=== PATIENT | male | born 1950 | race Caucasian/White ===

== ENCOUNTER 2022-12-24 16:28 | Emergency (ER) | payer MEDICARE, MEDICAID ==
[~2022-12-24] VITALS: Ht 188 cm; Wt 145.0 kg
[2022-12-24 17:16] LABS: Basophils # (auto) 0.1 10 ^3/uL (0-0.2); Basophils % (auto) 0.6 % (0.0-2.0); Eosinophils # (auto) 0.3 10 ^3/uL (0-0.8); Eosinophils % (auto) 2.4 % (0.0-7.0); Hematocrit 41.2 % (41.0-53.0); Hemoglobin 13.6 g/dL (13.5-17.5); Lymphocytes # (auto) 1.7 10 ^3/uL (0.4-5.4); Lymphocytes % (auto) 12.2 % (10.0-50.0); Mean Corpuscular Hemoglobin 29.4 pg (28.0-32.0); Mean Corpuscular Volume 89.3 fL (80.0-100.0); Monocytes # (auto) 1.1 10 ^3/uL (0-1.3); Monocytes % (auto) 7.6 % (0.0-12.0); Neutrophils # (auto) 10.7 10 ^3/uL (1.6-8.6); Neutrophils % (auto) 77.2 % (37.0-80.0); Nucleated Red Blood Cells % 0.1 %; Red Blood Cells 4.62 10^6/uL (4.5-5.90); Red Cell Distribution Width 14.6 % (11.8-14.3); White Blood Cell 13.8 10^3/uL (4.4-10.8)
[2022-12-24 17:24] LABS: Urine Bacteria NONE SEEN /hpf (None Seen); Urine Blood TRACE /uL (Negative); Urine Mucus FEW (None Seen); Urine Specific Gravity 1.019 (1.001-1.035); Urine WBC 2 /hpf (0 - 3)
[2022-12-24 17:28] LABS: Albumin 3.3 g/dL (3.4-5.0); Calcium 8.2 mg/dL (8.5-10.1); Magnesium 2.6 mg/dL (1.6-2.6); Potassium 4.3 mmol/L (3.5-5.1)
[2022-12-24 17:31] LABS: Bilirubin, Total 0.5 mg/dL (0.2-1.0); Total Protein 6.6 g/dL (6.4-8.2)
[2022-12-24] MEDS ORDERED: FLEET ENEMA(ADULT) 135 ML PR ONE (19:15)
[2022-12-24 21:25] VITALS: BP 138/72
[2022-12-24] MEDS: GOLYTELY 4L KIT PO ONE ×2 (22:08→23:01)
== END 2022-12-24 23:18 | disposition home or self-care (01) ==
LOC: EDBD 16:28 → ER 16:31
DX: K40.90 Unilateral inguinal hernia, without obstruction or gangrene, not specified as recurrent (principal); K59.00 Constipation, unspecified; J44.9 Chronic obstructive pulmonary disease, unspecified; E78.5 Hyperlipidemia, unspecified; I10 Essential (primary) hypertension; F17.210 Nicotine dependence, cigarettes, uncomplicated; Z79.899 Other long term (current) drug therapy
CPT/HCPCS: 36415; 71045; 74176; 80053; 81001; 83605; 83690; 83735; 84484; 85025; 93005

== ENCOUNTER 2022-12-26 03:50 | Inpatient (IN) | payer MEDICARE, MEDICAID ==
[~2022-12-26] VITALS: Ht 188 cm; Wt 140.5 kg
[2022-12-26 05:05] LABS: INR 0.92 (0.9-1.15); Partial Thromboplastin Time 21.3 sec (24.6-33.4)
[2022-12-26 05:06] LABS: Albumin 3.2 g/dL (3.4-5.0); BUN/Creatinine Ratio 12.3; Calcium 8.4 mg/dL (8.5-10.1); Magnesium 2.3 mg/dL (1.6-2.6); Potassium 4.3 mmol/L (3.5-5.1)
[2022-12-26 05:09] LABS: Bilirubin, Total 0.5 mg/dL (0.2-1.0)
[2022-12-26 05:17] LABS: Basophils # (auto) 0.2 10 ^3/uL (0-0.2); Basophils % (auto) 1.3 % (0.0-2.0); Eosinophils # (auto) 0.3 10 ^3/uL (0-0.8); Hematocrit 42.1 % (41.0-53.0); Hemoglobin 13.8 g/dL (13.5-17.5); Lymphocytes % (auto) 7.3 % (10.0-50.0); Mean Corpuscular Hemoglobin 29.3 pg (28.0-32.0); Mean Corpuscular Hgb Conc. 32.8 g/dL (32.0-36.0); Mean Corpuscular Volume 89.4 fL (80.0-100.0); Monocytes # (auto) 1.2 10 ^3/uL (0-1.3); Monocytes % (auto) 8.9 % (0.0-12.0); Neutrophils # (auto) 11.2 10 ^3/uL (1.6-8.6); Neutrophils % (auto) 80.5 % (37.0-80.0); Nucleated Red Blood Cells % 0.1 %; Red Blood Cells 4.71 10^6/uL (4.5-5.90); Red Cell Distribution Width 14.4 % (11.8-14.3); White Blood Cell 13.9 10^3/uL (4.4-10.8)
[2022-12-26 07:24] LABS: Urine Blood Normal /uL (Negative); Urine Specific Gravity 1.013 (1.001-1.035)
[2022-12-26] MEDS ORDERED: AMLO-496 PO (09:56)
[2022-12-26] MEDS ORDERED: CLON0.1T PO (09:56)
[2022-12-26] MEDS ORDERED: NITROGLYCERIN 0.4 MG SL TAB SL PRN (10:00)
[2022-12-26] MEDS ORDERED: MORPHINE SULFATE INJ 2 MG/ml SYRG IV PRN (10:00)
[2022-12-26] MEDS ORDERED: ACETAMINOPHEN 325 MG TAB PO PRN (10:00)
[2022-12-26] MEDS ORDERED: IPRATROPIUM BROM 0.5 MG/2.5ML INH SOL NEB PRN (10:30)
[2022-12-26] MEDS ORDERED: ALBUTEROL SULF 2.5 MG/0.5ML(0.5%) NEB SOLN NEB PRN (10:30)
[2022-12-26] MEDS ORDERED: PANTOPRAZOLE 40 MG/10 ML VIAL INJ IV ONE ×2 (10:30→10:45)
[2022-12-26] MEDS ORDERED: ENOXAPARIN SOD 40 MG/0.4 ML SYRINGE SC ONE (10:45)
[2022-12-26] MEDS ORDERED: metroNIDAZOLE 500MG/100ML 100 ML IV ONE (10:45)
[2022-12-26] MEDS ORDERED: cefTRIAXone 1GM/50ML D5W 50 ML IV ONE (10:45)
[2022-12-26 10:56] LABS: Cholesterol 178 mg/dL (< 200)
[2022-12-26] MEDS: cloNIDine HCL 0.1 MG TAB PO SCH ×2 (10:57→22:42)
[2022-12-26 11:05] LABS: HDL Cholesterol 41 mg/dL (40-59); LDL Cholesterol 122 mg/dL (< 100); Triglycerides 182 mg/dL (< 150)
[2022-12-26] MEDS: ALBUTEROL SULF 2.5 MG/0.5ML(0.5%) NEB SOLN NEB SCH ×2 (12:00→19:49)
[2022-12-26] MEDS: IPRATROPIUM BROM 0.5 MG/2.5ML INH SOL NEB SCH ×2 (12:00→19:49)
[2022-12-26] MEDS: LACTATED RINGER'S 1,000 ML IV SCH ×2 (12:49→18:45)
[2022-12-26 14:29] VITALS: BP 134/73
[2022-12-26] MEDS: MORPHINE SULFATE INJ 2 MG/ml SYRG IV PRN ×2 (14:51→20:03)
[2022-12-26] MEDS ORDERED: ALBUTEROL MEDNEB 2.5 mg/3ml NEB ONE (17:29)
[2022-12-26] MEDS: metroNIDAZOLE 500MG/100ML 100 ML IV SCH (18:55)
[2022-12-26] MEDS: ONDANSETRON HCL 4 MG/2 ML VIAL IV PRN (20:02)
[2022-12-26] MEDS: HYDROcodone-ACET 5/325MG TAB PO PRN (22:42)
[2022-12-27] MEDS: metroNIDAZOLE 500MG/100ML 100 ML IV SCH ×3 (03:06→17:24)
[2022-12-27] MEDS: LACTATED RINGER'S 1,000 ML IV SCH ×4 (05:51→21:24)
[2022-12-27] MEDS: ALBUTEROL SULF 2.5 MG/0.5ML(0.5%) NEB SOLN NEB SCH ×3 (06:00→19:22)
[2022-12-27] MEDS: IPRATROPIUM BROM 0.5 MG/2.5ML INH SOL NEB SCH ×3 (06:00→19:22)
[2022-12-27] MEDS: ONDANSETRON HCL 4 MG/2 ML VIAL IV PRN (08:12)
[2022-12-27 08:20] LABS: Urine Bacteria NONE SEEN /hpf (None Seen); Urine Blood Negative /uL (Negative); Urine Mucus FEW (None Seen); Urine Specific Gravity 1.028 (1.001-1.035); Urine WBC 5 /hpf (0 - 3)
[2022-12-27] MEDS: MORPHINE SULFATE INJ 2 MG/ml SYRG IV PRN ×3 (08:25→23:30)
[2022-12-27 09:00] VITALS: BP 148/80
[2022-12-27] MEDS ORDERED: PANTOPRAZOLE 40 MG/10 ML VIAL INJ IV SCH (10:00)
[2022-12-27 10:17] LABS: Basophils # (auto) 0.1 10 ^3/uL (0-0.2); Basophils % (auto) 0.7 % (0.0-2.0); Eosinophils # (auto) 0.3 10 ^3/uL (0-0.8); Eosinophils % (auto) 3.8 % (0.0-7.0); Hematocrit 41.2 % (41.0-53.0); Hemoglobin 13.3 g/dL (13.5-17.5); Lymphocytes # (auto) 1.4 10 ^3/uL (0.4-5.4); Lymphocytes % (auto) 18.1 % (10.0-50.0); Mean Corpuscular Hemoglobin 29.2 pg (28.0-32.0); Mean Corpuscular Hgb Conc. 32.3 g/dL (32.0-36.0); Mean Corpuscular Volume 90.5 fL (80.0-100.0); Monocytes # (auto) 0.7 10 ^3/uL (0-1.3); Monocytes % (auto) 9.4 % (0.0-12.0); Neutrophils # (auto) 5.2 10 ^3/uL (1.6-8.6); Red Blood Cells 4.56 10^6/uL (4.5-5.90); Red Cell Distribution Width 14.7 % (11.8-14.3); White Blood Cell 7.7 10^3/uL (4.4-10.8)
[2022-12-27] MEDS: PANTOPRAZOLE 40 MG/10 ML VIAL INJ IV SCH (10:17)
[2022-12-27] MEDS: cefTRIAXone 1GM/50ML D5W 50 ML IV SCH (10:17)
[2022-12-27] MEDS: amLODIPine BESYLATE 5 MG TAB PO SCH (10:18)
[2022-12-27] MEDS: cloNIDine HCL 0.1 MG TAB PO SCH ×2 (10:18→21:20)
[2022-12-27] MEDS: ENOXAPARIN SOD 40 MG/0.4 ML SYRINGE SC SCH (10:19)
[2022-12-27 10:27] LABS: Calcium 8.3 mg/dL (8.5-10.1); Potassium 4.1 mmol/L (3.5-5.1)
[2022-12-27 10:31] LABS: BUN/Creatinine Ratio 15.1; Bilirubin, Total 0.5 mg/dL (0.2-1.0); Total Protein 6.6 g/dL (6.4-8.2)
[2022-12-27 13:00] VITALS: BP 147/75
[2022-12-27 13:15] LABS: Urine Bacteria NONE SEEN /hpf (None Seen); Urine Blood Negative /uL (Negative); Urine Mucus FEW (None Seen); Urine Specific Gravity 1.028 (1.001-1.035); Urine WBC 1 /hpf (0 - 3)
[2022-12-27] MEDS: HYDROcodone-ACET 5/325MG TAB PO PRN ×2 (14:13→21:21)
[2022-12-27 17:00] VITALS: BP 164/80
[2022-12-27] MEDS: hydrALAZINE HCL 20 MG/ML VL IV PRN (17:25)
[2022-12-27] MEDS ORDERED: ALBUTEROL MEDNEB 2.5 mg/3ml NEB ONE (18:00)
[2022-12-27 22:00] VITALS: BP 167/82
[2022-12-28] MEDS: hydrALAZINE HCL 20 MG/ML VL IV PRN ×2 (00:06→06:33)
[2022-12-28] MEDS: HYDROcodone-ACET 5/325MG TAB PO PRN ×2 (01:29→12:22)
[2022-12-28] MEDS: metroNIDAZOLE 500MG/100ML 100 ML IV SCH ×3 (02:42→19:38)
[2022-12-28] MEDS: MORPHINE SULFATE INJ 2 MG/ml SYRG IV PRN ×3 (04:01→22:41)
[2022-12-28 05:31] VITALS: BP 175/87
[2022-12-28] MEDS ORDERED: ALBUTEROL MEDNEB 2.5 mg/3ml NEB ONE ×3 (05:36→18:44)
[2022-12-28] MEDS: ALBUTEROL SULF 2.5 MG/0.5ML(0.5%) NEB SOLN NEB SCH ×3 (06:48→18:49)
[2022-12-28] MEDS: IPRATROPIUM BROM 0.5 MG/2.5ML INH SOL NEB SCH ×3 (06:48→18:49)
[2022-12-28 08:44] VITALS: BP 174/91
[2022-12-28] MEDS: ONDANSETRON HCL 4 MG/2 ML VIAL IV PRN (08:47)
[2022-12-28] MEDS: cefTRIAXone 1GM/50ML D5W 50 ML IV SCH (08:47)
[2022-12-28] MEDS: cloNIDine HCL 0.1 MG TAB PO SCH ×2 (08:48→22:33)
[2022-12-28] MEDS: PANTOPRAZOLE 40 MG/10 ML VIAL INJ IV SCH (08:48)
[2022-12-28] MEDS: ENOXAPARIN SOD 40 MG/0.4 ML SYRINGE SC SCH (08:49)
[2022-12-28] MEDS: amLODIPine BESYLATE 5 MG TAB PO SCH (08:49)
[2022-12-28 09:42] LABS: Amphetamine Screen, Urine NEGATIVE (NEGATIVE); Barbiturate Scree,Urine NEGATIVE (NEGATIVE); Benzodiazephine Screen, Urine POSITIVE (NEGATIVE); Cannabinoid Screen, Urine NEGATIVE (NEGATIVE); Cocaine Screen, Urine NEGATIVE (NEGATIVE)
[2022-12-28 09:50] LABS: Opiate Scree,Urine POSITIVE (NEGATIVE); Phencyclidine Screen, Urine NEGATIVE (NEGATIVE)
[2022-12-28] MEDS: chlordiazePOXIDE HCL 25 MG CAP PO SCH ×2 (11:10→19:38)
[2022-12-28] MEDS: FOLIC ACID 1 MG, MULTIPLE VITAMIN 10 ML, MAGNESIUM SULF SDV 50% 8 MEQ, THIAMINE INJ 100... INJ SCH ×5 (12:48)
[2022-12-28 13:00] VITALS: BP 145/79
[2022-12-28 21:57] VITALS: BP 166/76
[2022-12-28] MEDS: MUPIROCIN 2% OINT 15gm or 22gm FOR MRSA NARES EACHNOSTRI SCH (22:35)
[2022-12-29] MEDS: chlordiazePOXIDE HCL 25 MG CAP PO SCH ×3 (00:51→22:41)
[2022-12-29] MEDS: metroNIDAZOLE 500MG/100ML 100 ML IV SCH ×3 (03:02→18:56)
[2022-12-29] MEDS: MORPHINE SULFATE INJ 2 MG/ml SYRG IV PRN ×5 (03:07→23:35)
[2022-12-29] MEDS ORDERED: ALBUTEROL MEDNEB 2.5 mg/3ml NEB ONE ×3 (05:40→18:57)
[2022-12-29 05:42] VITALS: BP 160/98
[2022-12-29] MEDS: IPRATROPIUM BROM 0.5 MG/2.5ML INH SOL NEB SCH ×3 (06:16→19:04)
[2022-12-29] MEDS: ALBUTEROL SULF 2.5 MG/0.5ML(0.5%) NEB SOLN NEB SCH ×3 (06:16→19:04)
[2022-12-29] MEDS: cefTRIAXone 1GM/50ML D5W 50 ML IV SCH (08:30)
[2022-12-29 09:36] VITALS: BP 181/90
[2022-12-29] MEDS: ENOXAPARIN SOD 40 MG/0.4 ML SYRINGE SC SCH (10:29)
[2022-12-29] MEDS: PANTOPRAZOLE 40 MG/10 ML VIAL INJ IV SCH (10:29)
[2022-12-29] MEDS: amLODIPine BESYLATE 5 MG TAB PO SCH (10:31)
[2022-12-29] MEDS: cloNIDine HCL 0.1 MG TAB PO SCH ×2 (10:32→22:40)
[2022-12-29] MEDS: MUPIROCIN 2% OINT 15gm or 22gm FOR MRSA NARES EACHNOSTRI SCH ×2 (10:32→22:41)
[2022-12-29] MEDS: FOLIC ACID 1 MG, MULTIPLE VITAMIN 10 ML, MAGNESIUM SULF SDV 50% 8 MEQ, THIAMINE INJ 100... INJ SCH ×5 (13:57)
[2022-12-29 16:54] VITALS: BP 112/97
[2022-12-29 22:00] VITALS: BP 164/94
[2022-12-30] MEDS: metroNIDAZOLE 500MG/100ML 100 ML IV SCH ×3 (04:16→18:45)
[2022-12-30 05:00] VITALS: BP 162/85
[2022-12-30] MEDS: MORPHINE SULFATE INJ 2 MG/ml SYRG IV PRN ×3 (05:56→16:06)
[2022-12-30] MEDS ORDERED: ALBUTEROL MEDNEB 2.5 mg/3ml NEB ONE ×3 (06:10→18:31)
[2022-12-30] MEDS: ALBUTEROL SULF 2.5 MG/0.5ML(0.5%) NEB SOLN NEB SCH ×3 (06:52→18:34)
[2022-12-30] MEDS: IPRATROPIUM BROM 0.5 MG/2.5ML INH SOL NEB SCH ×3 (06:52→18:34)
[2022-12-30] MEDS ORDERED: IOHEXOL 300 MG/ML 100ML BOTTLE IJ ONE (08:14)
[2022-12-30 09:00] VITALS: BP 157/74
[2022-12-30] MEDS: cefTRIAXone 1GM/50ML D5W 50 ML IV SCH (09:18)
[2022-12-30] MEDS: hydrALAZINE HCL 20 MG/ML VL IV PRN ×2 (09:19→14:02)
[2022-12-30 09:35] LABS: Basophils # (auto) 0.1 10 ^3/uL (0-0.2); Basophils % (auto) 1.7 % (0.0-2.0); Eosinophils # (auto) 0.4 10 ^3/uL (0-0.8); Eosinophils % (auto) 4.3 % (0.0-7.0); Hematocrit 45.2 % (41.0-53.0); Hemoglobin 15.6 g/dL (13.5-17.5); Lymphocytes # (auto) 1.4 10 ^3/uL (0.4-5.4); Lymphocytes % (auto) 17.5 % (10.0-50.0); Mean Corpuscular Hgb Conc. 34.6 g/dL (32.0-36.0); Mean Corpuscular Volume 86.5 fL (80.0-100.0); Monocytes # (auto) 0.8 10 ^3/uL (0-1.3); Monocytes % (auto) 9.3 % (0.0-12.0); Neutrophils # (auto) 5.5 10 ^3/uL (1.6-8.6); Neutrophils % (auto) 67.2 % (37.0-80.0); Nucleated Red Blood Cells % 0.4 %; Red Blood Cells 5.22 10^6/uL (4.5-5.90); Red Cell Distribution Width 14.3 % (11.8-14.3); White Blood Cell 8.2 10^3/uL (4.4-10.8)
[2022-12-30 09:56] LABS: Potassium 4.7 mmol/L (3.5-5.1)
[2022-12-30 10:10] LABS: BUN/Creatinine Ratio 10.4; Bilirubin, Total 0.8 mg/dL (0.2-1.0); Calcium 8.5 mg/dL (8.5-10.1)
[2022-12-30] MEDS: MUPIROCIN 2% OINT 15gm or 22gm FOR MRSA NARES EACHNOSTRI SCH ×2 (11:20→22:04)
[2022-12-30] MEDS: PANTOPRAZOLE 40 MG/10 ML VIAL INJ IV SCH (11:20)
[2022-12-30] MEDS: cloNIDine HCL 0.1 MG TAB PO SCH ×2 (11:21→22:04)
[2022-12-30] MEDS: chlordiazePOXIDE HCL 25 MG CAP PO SCH ×2 (11:21→22:04)
[2022-12-30] MEDS: amLODIPine BESYLATE 5 MG TAB PO SCH (11:22)
[2022-12-30] MEDS: ENOXAPARIN SOD 40 MG/0.4 ML SYRINGE SC SCH (11:22)
[2022-12-30] MEDS: FOLIC ACID 1 MG, MULTIPLE VITAMIN 10 ML, MAGNESIUM SULF SDV 50% 8 MEQ, THIAMINE INJ 100... INJ SCH ×5 (12:21)
[2022-12-30 12:42] VITALS: BP 151/109
[2022-12-30] MEDS: HYDROcodone-ACET 5/325MG TAB PO PRN ×2 (14:02→18:49)
[2022-12-30 16:37] VITALS: BP 161/81
[2022-12-30 20:00] VITALS: BP 116/74
[2022-12-30 22:00] VITALS: BP 116/74
[2022-12-31] MEDS: MORPHINE SULFATE INJ 2 MG/ml SYRG IV PRN ×4 (00:44→19:19)
[2022-12-31] MEDS: metroNIDAZOLE 500MG/100ML 100 ML IV SCH ×3 (03:09→18:37)
[2022-12-31 05:00] VITALS: BP 151/65
[2022-12-31] MEDS ORDERED: ALBUTEROL MEDNEB 2.5 mg/3ml NEB ONE ×3 (06:05→17:50)
[2022-12-31] MEDS ORDERED: chlordiazePOXIDE HCL 25 MG CAP PO SCH (07:00)
[2022-12-31] MEDS: ALBUTEROL SULF 2.5 MG/0.5ML(0.5%) NEB SOLN NEB SCH ×3 (07:05→19:32)
[2022-12-31] MEDS: IPRATROPIUM BROM 0.5 MG/2.5ML INH SOL NEB SCH ×3 (07:05→19:32)
[2022-12-31] MEDS: cefTRIAXone 1GM/50ML D5W 50 ML IV SCH (08:24)
[2022-12-31 08:30] VITALS: BP 160/89
[2022-12-31] MEDS ORDERED: LEVO500T31 PO (08:38)
[2022-12-31] MEDS ORDERED: METR500T PO (08:38)
[2022-12-31] MEDS ORDERED: MULT1TAB95 PO (08:38)
[2022-12-31] MEDS ORDERED: THIA100T5 PO (08:38)
[2022-12-31] MEDS ORDERED: DOCU-94 PO (08:38)
[2022-12-31] MEDS ORDERED: FOLI1TAB6 PO (08:38)
[2022-12-31] MEDS: MUPIROCIN 2% OINT 15gm or 22gm FOR MRSA NARES EACHNOSTRI SCH (09:02)
[2022-12-31] MEDS: PANTOPRAZOLE 40 MG/10 ML VIAL INJ IV SCH (09:02)
[2022-12-31] MEDS: cloNIDine HCL 0.1 MG TAB PO SCH (09:02)
[2022-12-31] MEDS: ENOXAPARIN SOD 40 MG/0.4 ML SYRINGE SC SCH (09:03)
[2022-12-31] MEDS: amLODIPine BESYLATE 5 MG TAB PO SCH (09:03)
[2022-12-31] MEDS: HYDROcodone-ACET 5/325MG TAB PO PRN ×2 (11:07→16:24)
[2022-12-31] MEDS: FOLIC ACID 1 MG, MULTIPLE VITAMIN 10 ML, MAGNESIUM SULF SDV 50% 8 MEQ, THIAMINE INJ 100... INJ SCH ×5 (12:00)
[2022-12-31 12:57] VITALS: BP 140/80
[2022-12-31 16:58] VITALS: BP 140/72
[2022-12-31 17:56] VITALS: BP 140/72
[2022-12-31 19:19] VITALS: BP 140/72
== END 2022-12-31 19:45 | disposition home or self-care (01) | DRG 720 ==
LOC: EDBD 03:50 → ER 03:50 → TELE 09:55 → TELE-CENTR 12-27 08:50
PROVIDERS: ADMIT Registered Nurse; ATTEND Family Medicine
DX: A41.9 Sepsis, unspecified organism (principal); E43 Unspecified severe protein-calorie malnutrition; E66.01 Morbid (severe) obesity due to excess calories; K80.20 Calculus of gallbladder without cholecystitis without obstruction; E78.5 Hyperlipidemia, unspecified; J44.9 Chronic obstructive pulmonary disease, unspecified; I10 Essential (primary) hypertension; E78.00 Pure hypercholesterolemia, unspecified; E86.0 Dehydration; J44.1 Chronic obstructive pulmonary disease with (acute) exacerbation; K59.00 Constipation, unspecified; Z20.822 Contact with and (suspected) exposure to COVID-19; Z74.01 Bed confinement status; Z68.41 Body mass index [BMI] 40.0-44.9, adult; Z87.891 Personal history of nicotine dependence
CPT/HCPCS: 36415; 71045; 71250; 74176; 76705; 78226; 80053; 80061; 80307; 81001; 81003; 83036; 83690; 83735; 84443; 84484; 85025; 85610; 85730; 87040; 87081; 87426; 93005; 94640; C9113; G0378; J0696; J2405; J3490